=== PATIENT | female | born 1975 | race Caucasian/White ===

== ENCOUNTER 2016-03-26 17:15 | Emergency (ER) | payer OTHER ==
[~2016-03-26] VITALS: Ht 154.9 cm; Wt 54.4 kg
[2016-03-26 17:25] VITALS: BP 121/89
--- NOTE | 2016-03-26 20:11 | NUR ---
TO ER BED 7
--- NOTE | 2016-03-26 20:13 | NUR ---
PATIENT PRESENTS TO ED WITH CP FOR THE PAST MONTH THAT SHE STARTED WHEN SHE WAS LAYING DOWN AT HOME . PT STATES SHE FEELS NAUSEOUS, DIZZINESS, AND FATIGUE WITH A HX OF MIGRAINES AND PALPITATIONS [id number] . DENIES V/D; SKIN IS PINK/WARM/DRY; AAOX4 WITH EVEN AND STEADY GAIT; LUNGS CLEAR BL; HR EVEN AND REGULAR; PT DENIES ANY FEVER, CP, SOB, OR COUGH AT THIS TIME; PATIENT STATES PAIN OF 6/10 AT THIS TIME; VSS; PATIENT POSITIONED FOR COMFORT; HOB ELEVATED; BEDRAILS UP X2; BED DOWN. ER MD MADE AWARE OF PT STATUS.
--- NOTE | 2016-03-26 21:56 | NUR ---
Patient appears to be resting comfortably in bed. Vital Signs within normal limits. Respirations even and unlabored.
[2016-03-26 23:08] VITALS: BP 136/90
== END 2016-03-26 23:08 | disposition home or self-care (01) ==
LOC: MED 17:15 → EEVIPCON 17:15 → MED 23:08
DX: R00.2 Palpitations (principal); R03.0 Elevated blood-pressure reading, without diagnosis of hypertension; R53.83 Other fatigue; R06.02 Shortness of breath; R11.0 Nausea; R20.0 Anesthesia of skin
CPT/HCPCS: 36415; 71010; 80053; 84484; 85025; 85610; 85730; 93005; 99285; Q0092